=== PATIENT | male | born 1955 | race Two or more races ===

== ENCOUNTER 2020-11-14 14:30 | Outpatient (CLI) | payer BC | END 2020-11-14 23:59 | disposition home or self-care (01) | LOC: MSC 14:30 | PROVIDERS: ATTEND Internal Medicine | DX: R42 Dizziness and giddiness (principal); K21.9 Gastro-esophageal reflux disease without esophagitis; I25.10 Atherosclerotic heart disease of native coronary artery without angina pectoris; Z98.61 Coronary angioplasty status; E78.5 Hyperlipidemia, unspecified; J30.2 Other seasonal allergic rhinitis; D86.9 Sarcoidosis, unspecified; Z79.899 Other long term (current) drug therapy ==